=== PATIENT | female | born 1995 | race Caucasian/White ===

== ENCOUNTER 2019-01-07 07:01 | Emergency (ER) | payer MEDICAID, OTHER ==
[~2019-01-07] VITALS: Ht 162.6 cm; Wt 92.6 kg
[2019-01-07 07:21] VITALS: BP 132/70
--- NOTE | 2019-01-07 07:41 | NUR ---
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 DENIES INJURY, NAUSEA OR VOMITING HX/MEDS: DENIES
[2019-01-07] MEDS ORDERED: KETOROLAC 30 MG/ML VIAL IM ONE (07:45)
[2019-01-07 08:25] VITALS: BP 125/74
--- NOTE | 2019-01-07 08:25 | NUR ---
Patient discharged with v/s stable. Written and verbal after care instructions given and explained. Patient alert, oriented and verbalized understanding of instructions. Ambulatory with steady gait. All questions addressed prior to discharge. ID band removed. Patient advised to follow up with PMD. Rx of Ibuprofen 600mg given. Patient educated on indication of medication including possible reaction and side effects. Opportunity to ask questions provided and answered.
== END 2019-01-07 08:25 | disposition home or self-care (01) ==
LOC: MED 07:01
DX: M25.512 Pain in left shoulder (principal)
CPT/HCPCS: 96372; 99283; J1885

== ENCOUNTER 2020-03-18 10:52 | Emergency (ER) | payer OTHER ==
[~2020-03-18] VITALS: Ht 162.6 cm; Wt 86.6 kg
[2020-03-18 11:03] VITALS: BP 115/75
--- NOTE | 2020-03-18 11:06 | NUR ---
PT SENT TO LOBBY TO WAIT FOR AVAILABLE BED AND MSE. UA CUP PROVIDED. PT ADVISED TO PROVIDE UA SPECIMEN WHEN ABLE TO.
[2020-03-18 11:51] VITALS: BP 115/75
--- NOTE | 2020-03-18 11:51 | NUR ---
Patient discharged with v/s stable. Written and verbal after care instructions given and explained. Patient alert, oriented and verbalized understanding of instructions. Ambulatory with steady gait. All questions addressed prior to discharge. ID band removed. Patient advised to follow up with PMD. Rx of MOTRIN 800MG, ZOFRAN 8MG given. Patient educated on indication of medication including possible reaction and side effects. Opportunity to ask questions provided and answered.
== END 2020-03-18 11:51 | disposition home or self-care (01) ==
LOC: MED 10:52
DX: R10.30 Lower abdominal pain, unspecified (principal); R11.0 Nausea; F17.200 Nicotine dependence, unspecified, uncomplicated
CPT/HCPCS: 81002; 81025; 99283

== ENCOUNTER 2020-05-09 08:29 | Emergency (ER) | payer OTHER ==
[~2020-05-09] VITALS: Ht 162.6 cm; Wt 83.9 kg
[2020-05-09 08:32] VITALS: BP 104/68
--- NOTE | 2020-05-09 09:00 | NUR ---
COVID NOVEL AND STREP WERE SWABBED AND SENT TO LAB.
[2020-05-09] MEDS ORDERED: KETOROLAC 30 MG/ML VIAL IM ONE (09:05)
--- NOTE | 2020-05-09 09:21 | NUR ---
XRAY AT BEDSIDE.
--- NOTE | 2020-05-09 09:21 | NUR ---
25 Y/O F C/O SORE THROAT THAT STARTED 05/08/20, RADIATES TO CHEST AND L EAR. NO HEARING DEFICIT, 98.7 F ORAL TEMP. STATED SHE HAD A FEVER LAST NIGHT 103 F. NO MEDS TAKEN AT HOME. C/O SOB, CHEST PAIN, AND L ABD PAIN. NO COUGH, NO N&V, NO BM CHANGES, LAST BM WAS THIS MORNING. DENIES ANY CONTACT WITH ANYONE COVID POSITIVE OR SICK. TESTED POSITIVE 2 MO AGO. PT IS A&O X4, ABD X4 NORMOACTIVE, LUNGS SOUNDS BILATERALLY CLEAR ANTERIOR AND POSTERIOR, NO USE OF ACCESSORY MUSCLES. NO PMH, NO SX HX, NO OTC RX.
--- NOTE | 2020-05-09 10:02 | NUR ---
CALLED LAB, REQUESTED SEPARATE THROAT CULTURE THROUGH POLYESTER IN RED TUBE. PT WAS SWABBED, GAVE TO JANET FROM LAB.
--- NOTE | 2020-05-09 10:08 | NUR ---
Dr. Rankin is evaluating the patient at bedside.
[2020-05-09 10:33] VITALS: BP 109/60
--- NOTE | 2020-05-09 10:34 | NUR ---
Patient discharged with v/s stable. Written and verbal after care instructions given and explained. Patient alert, oriented and verbalized understanding of instructions. Ambulatory with steady gait. All questions addressed prior to discharge. ID band removed. Patient advised to follow up with PMD. Rx of CODEINE, AZITHROMYCIN, AND IBUPROFEN given. Patient educated on indication of medication including possible reaction and side effects. Opportunity to ask questions provided and answered.
== END 2020-05-09 10:34 | disposition home or self-care (01) ==
LOC: MED 08:29
DX: J02.9 Acute pharyngitis, unspecified (principal); Z20.828 Contact with and (suspected) exposure to other viral communicable diseases
CPT/HCPCS: 71045; 87081; 96372; 99284; J1885; U0003